=== PATIENT | male | born 1995 | race Hispanic/Latino ===

== ENCOUNTER 2017-09-25 09:46 | Emergency (ER) | payer OTHER ==
[2017-09-25 09:52] VITALS: BMI 28.1
[2017-09-25 09:55] VITALS: O2SAT 97
[2017-09-25] MEDS ORDERED: Naproxen 550 mg Tab PO STA (10:05)
--- NOTE | 2017-09-25 10:07 | C.PDOC ---
History Of Present Illness 21 yo male, present s with left ankle pain s/p playing baseball. states rolledhis ankle and "heard pop". pain to lateral ankle. no head injury or other complaint Time Seen by Provider: 09/25/17 10:03 Chief Complaint (Nursing): Lower Extremity Problem/Injury Past Medical History Reviewed: Historical Data, Nursing Documentation, Vital Signs Vital Signs: Last Vital Signs Temp 97.9 F 09/25/17 12:01 Pulse 81 09/25/17 12:01 Resp 18 09/25/17 12:01 BP 133/86 09/25/17 12:01 Pulse Ox 97 09/25/17 12:01 - Medical History PMH: HTN Family History: States: Unknown Family Hx - Social History Hx Alcohol Use: Yes Hx Substance Use: No - Immunization History Hx Tetanus Toxoid Vaccination: No Hx Influenza Vaccination: Yes Hx Pneumococcal Vaccination: No Review Of Systems Musculoskeletal: Positive for: Other (left ankle pain) Physical Exam - Physical Exam Appears: Well, No Acute Distress Skin: Normal Color, Warm, Dry Eye(s): bilateral: Normal Inspection, PERRL, EOMI Nose: Normal Throat: Normal Neck: Normal Cardiovascular: Rhythm Regular Respiratory: Normal Breath Sounds Gastrointestinal/Abdominal: Normal Exam Back: Normal Inspection Extremity: Normal ROM, Tenderness ((+)left lateral ankle), No Deformity, Swelling (mild), Other (neg prajapati, able to plantar flex in nad) ED Course And Treatment O2 Sat by Pulse Oximetry: 97 Medical Decision Making Medical Decision Making: placed in splint, crutches. advse outpt fu. Disposition - Disposition Referrals: [facility] [Outside] [facility] [Outside] [facility] [Outside] [facility] [Outside] Disposition: HOME/ ROUTINE Disposition Time: 12:00 Condition: STABLE Additional Instructions: please see specialist. return to er with worsening symptoms or concerns. Prescriptions: Naproxen [Naprosyn] 500 mg PO BID PRN #14 tablet PRN Reason: Pain, Mild (1-3) Instructions: Ankle Sprain Forms: [email or web address] (Croatian) - Clinical Impression Clinical Impression: Ankle sprain
[2017-09-25] MEDS ORDERED: Naproxen 550 mg Tab PO ONE (10:27)
--- NOTE | 2017-09-25 10:55 | RAD ---
Date of service: 09/25/2017 PROCEDURE: Left Ankle Radiographs. HISTORY: trauma COMPARISON: None FINDINGS: BONES: Bone alignment and mineralization are normal. There is no acute displaced fracture or bone destruction. JOINTS: Normal. No osteoarthritis. Ankle mortise maintained. Talar dome intact SOFT TISSUES: Normal. OTHER FINDINGS: None. IMPRESSION: No acute fracture or dislocation.
[2017-09-25 12:03] VITALS: BP 133/86; PULSE 81; RESP 18; TEMP 97.9
== END 2017-09-25 12:01 | disposition home or self-care (01) ==
LOC: C.ER 09:46
DX: S93.402A Sprain of unspecified ligament of left ankle, initial encounter (principal); X50.0XXA Overexertion from strenuous movement or load, initial encounter; Y93.64 Activity, baseball; Y92.39 Other specified sports and athletic area as the place of occurrence of the external cause